=== PATIENT | male | born 2000 | race Caucasian/White ===

== ENCOUNTER 2020-09-05 23:29 | Emergency (ER) | payer OTHER ==
[~2020-09-05] VITALS: Ht 162.6 cm; Wt 63.6 kg
[2020-09-05 23:35] VITALS: TEMP 99
[2020-09-06 00:27] LABS: BASO % 0.3 % (0.0-2.0); EOS % 0.2 % (0-4.0); GRAN # 12.8 (1.4-6.5); HEMATOCRIT 40.4 % (42.0-52.0); HEMOGLOBIN 14.2 g/dl (13.5-18.0); LYMPH # 0.9 (1.2-3.4); LYMPH % 5.9 % (20.0-51.0); MEAN CELL VOLUME 82 fl (80.0-100.0); MEAN CORPUSCULAR HEMOGLOBIN 29 pg (27.0-31.0); MEAN CORPUSCULAR HGB CONC 35 g/dl (33.0-37.0); MONO # 0.8 (0.1-0.6); MONO % 5.2 % (1.7-9.3); PLATELET COUNT 308 K/mm3 (130-400); RED BLOOD COUNT 4.93 M/mm3 (4.20-5.60); REDCELL DISTRIBUTION WIDTH-CV 12.6 % (11.5-14.5)
[2020-09-06 00:35] LABS: ANION GAP 15 mmol/L (7-16); BLOOD UREA NITROGEN 19 mg/dL (9-20); CALCIUM 8.9 mg/dL (8.4-10.2); CARBON DIOXIDE 23 mmol/L (22-30); CHLORIDE 102 mmol/L (98-107); CREATININE, serum 0.84 (0.66-1.25); GLUCOSE 191 mg/dL (74-106); POTASSIUM 3.2 mmol/L (3.4-5.0); SODIUM 140 mmol/L (137-145)
[2020-09-06 00:51] LABS: TROPONIN-I < 0.012 ng/mL (0.000-0.035)
[2020-09-06 01:06] LABS: TSH w REFLEX 0.655 uIU/mL (0.465-4.680)
[2020-09-06 02:34] VITALS: BP 116/73; PULSE 113
== END 2020-09-06 02:42 | disposition home or self-care (01) ==
LOC: COL.ER 23:29
PROVIDERS: Emergency Medicine
DX: F12.10 Cannabis abuse, uncomplicated (principal)
CPT/HCPCS: J2060; J7120